=== PATIENT | male | born 1955 | race Caucasian/White ===

== ENCOUNTER 2018-10-06 12:49 | Inpatient (IN) ==
--- NOTE | 2018-10-06 12:54 | PROVIDER DOCUMENTATION ---
HPI-General Adult - General Stated Complaint: WOUND ON FOOT Time Seen by Provider: 10/06/18 12:51 Source: patient Allergies/Adverse Reactions: Patient Allergies Allergy/AdvReac Type Severity Reaction Status Date / Time No Known Allergies Allergy Verified 01/06/13 13:20 Home Medications: Home Medication List Medication Instructions Recorded Confirmed Last Taken Type Albuterol Sulfate [Proair Hfa] 2 puff IH PRN PRN 01/06/13 10/06/18 Unknown History Butalb/Acetaminophen/Caffeine 1 each PO BID PRN PRN 01/06/13 01/06/13 Unknown History [Yiirxr-Sliasnvw-Uoip 50-325-40] Gabapentin 600 mg PO TID 01/06/13 10/06/18 01/05/13 21:00 History Hydrocodone/Acetaminophen [Lortab 1 each PO TID 01/06/13 10/06/18 01/05/13 21:00 History 10-500 Tablet] LISINOpril [Prinivil] 20 mg PO DAILY 01/06/13 10/06/18 01/06/13 09:00 History Loratadine 10 mg PO QAM 01/06/13 01/06/13 01/05/13 09:00 History Lorazepam [Ativan] 0.5 mg PO TID PRN PRN 01/06/13 10/06/18 01/05/13 21:00 Hi story Lorazepam [Ativan] 1 mg PO QHS 01/06/13 10/06/18 01/05/13 21:00 History Metoprolol Succinate E.r. [Toprol 50 mg PO DAILY 01/06/13 01/06/13 01/06/13 09:00 History Xl] Sertraline HCl 100 mg PO DAILY 01/06/13 01/06/13 01/05/13 21:00 History Simvastatin [Zocor] 20 mg PO QHS 01/06/13 01/06/13 01/05/13 21:00 History Pantoprazole [Protonix] 40 mg PO DAILY@0700 #0 tablet 01/09/13 10/06/18 Unknown Rx Clindamycin [Cleocin] 150 mg PO Q6HR #28 cap 09/19/18 10/06/18 Unknown Rx Ibuprofen 800 mg PO TID PRN #30 tab 09/19/18 10/06/18 Unknown Rx - History of Present Illness -Gen Adult Nature of Presenting Problems: Pt. is 63 yom that presents with c/o wound to right foot. Pt. is currently being treated by the wound care center for the wound but the family reports it is just getting worse. He has vascular studies scheduled for 1400 and he signed into the ED at 1249. Location of Pain/Injury: reports: feet (Right). denies: none, head, face, mouth, neck, chest, upper extremity, hand(s), abdomen, back, pelvis, genitalia, lower extremity, upper body, lower body, generalized, other Pain Radiation: reports: no radiation. denies: arm(s), back, buttocks, chest, epigastric, feet, groin, jaw, flank (L), legs (lower), LLQ, LUQ, neck, periumbilical, flank (R), RLQ, RUQ, shoulder(s), scapula, scrotal, sternal notch, suprapubic, legs (upper), urethral, vaginal, other Quality of Pain: reports: aching. denies: burning, pressure, stabbing, tightness Severity: reports: moderate. denies: mild, severe Onset/Duration: reports: unsure, gradual Timing: reports: still present. denies: improving, intermittent, getting worse Context/Activities at Onset: reports: none Modifying Factors: improves with: nothing Associated Symptoms: reports: other (Right foot wound). denies: denies symptoms, anxiety, arm pain, back/neck pain, chest pain, constipation, cough, diaphoresis, diarrhea, dizziness, EENT symptoms, fatigue, fever/chills, genitourinary problems, headaches, heartburn, joint pain, loss of appetite, malaise, muscle aches, sinus congestion/drainage, nausea, rash, seizure, shortness of breath, sensory/motor loss, pain with inspiration, swelling/mass in abdomen, syncope, vomiting, weakness, trouble walking Similar Symptoms Previously?: Yes Recently seen or treated by another doctor?: Yes Review of Systems - Adult - REVIEW OF SYSTEMS - ADULT Constitutional: reports: no symptoms reported Eyes: reports: no symptoms reported Ears, Nose, Mouth & Throat: reports: no symptoms reported Cardiovascular: reports: no symptoms reported Respiratory: reports: no symptoms reported Gastrointestinal: reports: no symptoms reported Genitourinary: reports: no symptoms reported Musculoskeletal: reports: no symptoms reported Integumentary: reports: see HPI, skin sores/ulcer. denies: hair loss, itching, nail changes, skin thickening Neurological: reports: no symptoms reported Psychiatric: reports: no symptoms reported Past History - Adult - PAST MEDICAL HISTORY-ADULT Review of Records: reports: Old Records Reviewed, Nursing Assessment Review, Medications Reviewed, Social history reviewed & non-contributory. Major Childhood Illnesses: reports: denies history Cardiovascular: reports: denies history Respiratory: reports: denies history Gastrointestinal: reports: denies history Obstetrical/Gynecological: reports: denies history Genitourinary: reports: denies history Musculoskeletal: reports: denies history Neurological: reports: denies history Endocrine/Immune: reports: denies history Other Conditions: reports: denies history - IMMUNIZATION STATUS Childhood Immunizations: See Nurse Assessment Flu Vaccine: See Nurse Assessment - FAMILY HISTORY Family History: reviewed, not pertinent - SOCIAL HISTORY Smoking: denies Physical Exam-General - PHYSICAL EXAM-ADULT Initial Vital Signs Reviewed: Yes - CONSTITUTIONAL General Appearance: alert, mild distress, thin. negative: anxious, obtunded - EYES Eyes: PERRL/EOMI, pink conjunctivae - HEAD, EARS, NOSE, MOUTH & THROAT HENMT: normocephalic/atraumatic, moist mucous membranes - NECK Neck: non-tender, full range of motion, supple, normal inspection - RESPIRATORY Respiratory: lungs clear, normal breath sounds - CARDIOVASCULAR Cardiovascular: normal peripheral pulses, regular rate, rhythm, no edema - GASTROINTESTINAL (ABDOMEN) Abdominal Exam: normal bowel sounds, non tender, soft - LYMPHATIC Lymphatic: no adenopathy. negative: axilla node tender, cervical node tenderness - MUSCULOSKELETAL Back Exam: normal inspection, no CVA tenderness, no vertebral tenderness Extremity: erythema (The right foot is swollen and erythemic with on open wound to the medial foot just behind the great toe.), inflammation (The right foot is swollen and erythemic with on open wound to the medial foot just behind the great toe.), tenderness (The right foot is swollen and erythemic with on open wound to the medial foot just behind the great toe.). negative: normal gait, normal inspection, deformity, joint effusion Peripheral Pulses: radial (R): 2+, radial (L): 2+ - SKIN Integumentary: erythema (The right foot is swollen and erythemic with on open wound to the medial foot just behind the great toe.), swelling (The right foot is swollen and erythemic with on open wound to the medial foot just behind the great toe.), tenderness (The right foot is swollen and erythemic with on open wound to the medial foot just behind the great toe.), warm (The right foot is swollen and erythemic with on open wound to the medial foot just behind the great toe.). negative: jaundice, mottled, pallor - NEUROLOGIC Neurologic: grossly normal, no motor/sensory deficits - PSYCHIATRIC Psych/Mental Status: normal mood/affect, normal thought content, normal thought process, oriented x 3. negative: anxious, paranoid, tearful Progress - PLAN OF CARE/RESULTS Progress/Plan/Lab Results: Laboratory Tests 10/06/18 10/06/18 10/06/18 13:55 13:55 13:55 WBC 16.19 H RBC 4.77 Hgb 14.4 Hct 41.1 L MCV 86.2 MCH 30.2 MCHC 35.0 RDW Std Deviation 13.9 Plt Count 295 MPV 9.4 Immature Gran % (Auto) 0.2 Neut % (Auto) 80.0 H Lymph % (Auto) 10.3 L Burke % (Auto) 9.0 Eos % (Auto) 0.4 Baso % (Auto) 0.1 Immature Gran # (Auto) 0.03 Neut # (Auto) 12.96 H Lymph # (Auto) 1.66 Burke # (Auto) 1.45 H Eos # (Auto) 0.07 Baso # (Auto) 0.02 Sodium 135 L Potassium 3.8 Chloride 94 L Carbon Dioxide 25 Anion Gap 16 BUN 13 Creatinine 0.7 Estimated GFR/1.73 m2 > 60 BUN/Creatinine Ratio 19 Glucose 132 H Calculated Osmolality 272 Calcium 9.0 Total Bilirubin 0.70 AST 17 ALT 8 L Alkaline Phosphatase 114 Creatine Kinase 62 Total Protein 8.3 Albumin 3.9 Globulin 4.0 Albumin/Globulin Ratio 1.0 Plasma Lactate 1.6 Discussed results and plan of care with patient. Patient agrees with plan and verbalizes understanding. Result Diagrams: 10/06/18 13:55 10/06/18 13:55 - CONSULTS/PCP/HOSPITALIST Notification #1 *Consult/PCP/Hospitalist*: Dr. [place] Time Discussed: 15:33 Reason/Comments: Admission Consult Disposition: Will see in ED, Admit Departure - Departure Date of Disposition Decision: 10/06/18 Time of Disposition Decision: 15:34 DIAGNOSIS: Foot ulcer, right Qualifiers: Non-pressure ulcer stage: unspecified non-pressure ulcer stage Qualified Code(s ): L97.519 - Non-pressure chronic ulcer of other part of right foot with unspecified severity Cellulitis Qualifiers: Site of cellulitis: extremity Site of cellulitis of extremity: lower extremity Laterality: right Qualified Code(s): L03.115 - Cellulitis of right lower limb Disposition: ADMITTED INPATIENT 09 Certified Medical Emergency: Emergent Condition: Stable Referrals and Follow-Ups: None,PCP [Primary Care Provider] - - Critical Care Note This patient required my direct & personal management of CC.: No Attestation - Physician/ JUAN Attestation Patient care was provided by Advanced Practice Provider:: Yes Advanced Practice Provider:: Colton Lynn Advanced Practice Provider documentation review:: The Mid-level provider documentation, treatment plan and medical decision making was reviewed by the physician who agrees with all treatment and medical decision making by the MLP. The physician spent face to face time with patient:: No Advanced Practice Provider documentation review:: Supervising physician onsite and consulted in the evaluation and care of this patient. The physician did not have a face to face encounter with the patient.
[2018-10-06 14:09] LABS: EOS# 0.07 X1000 (0.0-0.7); EOS% 0.4 % (0.0-10.0); HEMOGLOBIN 14.4 g/dL (14.0-18.0); IMM GRAN# 0.03 X1000 (0.0-0.04); IMM GRAN% 0.2 % (0.0-0.5); RDW 13.9 % (11.5-14.5)
[2018-10-06 14:19] LABS: BASO# 0.02 X1000 (0.0-0.2); BASO% 0.1 % (0.0-0.8); HEMATOCRIT 41.1 % (42.0-52.0); LYMPH# 1.66 X1000 (1.2-3.4); LYMPH% 10.3 % (20.5-51.1); MCH 30.2 PG (27-31); MCV 86.2 FL (81-99); MONO# 1.45 X1000 (0.11-0.59); MPV 9.4 FL (7.4-10.4); NEUT# 12.96 X1000 (1.4-6.5); PLT 295 X1000 (130-400); RBC 4.77 XMIL (4.7-6.1); WBC 16.19 X1000 (4.8-10.8)
[2018-10-06 14:40] LABS: AGAP 16; ALBUMIN 3.9 g/dL (3.5-5.0); ALKALINE PHOSPHATASE 114 U/L (32-122); BUN 13 mg/dL (8-22); CHLORIDE 94 mmol/L (98-107); CK PROFILE 62 U/L (24-204); COSMO 272; CREATININE 0.7 mg/dL (0.7-1.2); ESTIMATED GFR > 60; GLUCOSE 132 mg/dL (70-104); GOT 17 U/L (10-34); GPT 8 U/L (10-44); POTASSIUM 3.8 mmol/L (3.5-5.1); SODIUM 135 mmol/L (136-145); TCO2 25 mmol/L (25-35); TOTAL PROTEIN 8.3 g/dL (6.3-8.3)
[2018-10-06] MEDS ORDERED: VANCOMYCIN 1 GM/NS 1 GM/250 ML IVPB IV ONE ×2 (14:41→23:00)
--- NOTE | 2018-10-06 16:17 | Diag Imaging Result Doc PS360 ---
EXAM: CHEST-PORTABLE HISTORY: admit TECHNIQUE: Single view of the chest was performed portably. COMPARISON: 01/11/2013 FINDINGS: The cardiomediastinal silhouette is within normal limits. The pulmonary vasculature is not congested. No infiltrate, effusion, or pneumothorax is appreciated. There is stable postsurgical/posttraumatic changes right distal clavicle. IMPRESSION: No acute cardiopulmonary abnormality is identified. Electronically signed by Romana Valladares 10/06/2018 4:15 PM
[2018-10-06 16:32] LABS: BILIRUBIN URINE 1+ (NEGATIVE); BLOOD URINE NEGATIVE (NEGATIVE); CLARITY CLEAR (CLEAR); COLOR YELLOW; KETONE URINE 1+(Small) mg/dL (NEGATIVE); LEUKOCYTES URINE 1+ (NEGATIVE); NITRITE URINE NEGATIVE (NEGATIVE); PH URINE 6.5; PROTEIN URINE 2+(100 mg/dL) mg/dL (NEGATIVE); SP GRAVITY URINE 1.015; UROBILINOGEN URINE 8 mg/dL
[2018-10-06 16:37] LABS: URINE BACTERIA 1+ /HFP; URINE CAST NONE SEEN /LPF; URINE CRYSTAL NONE SEEN /HPF; URINE EPITHELIAL CELLS <10 /HPF (<10); URINE SOURCE CATH; URINE YEAST NONE SEEN /HPF
--- NOTE | 2018-10-06 16:43 | EKG Report ---
Test Performed on : 10/06/2018 4:23:44 PM Test Reason : admit Blood Pressure : / mmHG Vent. Rate : 099 BPM Atrial Rate : 099 BPM P-R Int : 174 ms QRS Dur : 094 ms QT Int : 356 ms P-R-T Axes : 018 020 028 degrees QTc Int : 456 ms Normal sinus rhythm. Normal ECG When compared with ECG of 06-JAN-2013 12:49, Nonspecific T wave abnormality no longer evident in Lateral leads Unconfirmed Result
--- NOTE | 2018-10-06 17:56 | ED EKG INTERP ---
This chart was entered by Nancy Cheng Scribe, acting as scribe for Alfredo Banks MD. EKG Interpretation - EKG Time of EKG reading by physician:: 16:23 EKG Read and Signed by:: Alfredo Banks EKG Interpretation (*Must complete 3 of following elements*): Normal Rate: 99 Rhythm: normal sinus QRS: normal ST Wave: normal Attestation - Physician/ JUAN Attestation Patient care was provided by Advanced Practice Provider:: No The physician spent face to face time with patient:: Yes Advanced Practice Provider documentation review:: Supervising physician onsite and consulted in the evaluation and care of this patient. The physician did have a face to face encounter with the patient. This chart was documented by the indicated scribe, (Nancy Cheng Scribe) and accurately reflects the services I performed and decisions made by me, Alfredo Banks MD, as attested by the provider's signature.
--- NOTE | 2018-10-06 19:06 | HISTORY AND PHYSICAL ---
PRIMARY CARE PROVIDER: None. VASCULAR SURGEON: Dr. Alvarado Chase. CHIEF COMPLAINT: Right wound infection. HISTORY OF PRESENT ILLNESS: Mr. Fischer is a 63-year-old gentleman who has a history of 2 prior CVAs that have affected his speech as well as his right lower extremities, peripheral vascular disease, chronic liver disease secondary to alcoholism, anemia, hypertension and chronic pain. He presented to the ED with complaint of a wound to his right foot. He is currently being treat treated at the [facility]. The family reported he was supposed to have vascular studies done at 2 o'clock today; however, he signed in to the ED at 12:49. He was found to have an elevated white count. He was initiated on vancomycin and Zosyn. Wound cultures were taken and we are currently awaiting his vascular studies. We will consult Vascular in the a.m. There was no nobody at the bedside at the time of admission. I believe the sister had stepped out of the room, unable to locate at the time of the exam, and it was hard to understand the patient secondary to speech. He was able to point and shake his head yes and no. Will bring him to the medical telemetry floor and continue with IV antibiotic. PAST MEDICAL HISTORY: 1. Two prior CVAs that have affected his speech in the right side of his body. 2. Anemia. 3. Hypertension. 4. Chronic pain. 5. Chronic liver disease secondary to alcoholism. PAST SURGICAL HISTORY: The only thing of note is an EGD. SOCIAL HISTORY: Patient used to be a chronic alcoholic, as well as smoker. Is now status post two CVAs that affected his speech in the right side of the body. He lives with his sister. FAMILY HISTORY: Unknown. ALLERGIES: No known drug allergies. HOME MEDICATIONS: Have not been verified. REVIEW OF SYSTEMS: Hard to obtain secondary to patient's condition and no family at bedside. PHYSICAL EXAMINATION: VITAL SIGNS: Temperature 99, heart rate 90, respirations 18, blood pressure 128/74. O2 sat is 95% on room air. GENERAL: Mr. Fischer is a 63-year-old male who is sitting up in the stretcher in no acute distress. HEENT: Atraumatic, normocephalic. PERRL. NECK: Supple. Trachea midline. CARDIOVASCULAR: S1, S2 appreciated. No murmurs, gallops or rubs noted. RESPIRATORY: Lung sounds clear bilaterally. GASTROINTESTINAL: Soft, nontender, nondistended. Positive bowel sounds in 4 quadrants. EXTREMITY: Lower extremity both pedal pulses palpable. His right foot is currently dressed and wrapped. Could note some redness underneath. Did not appreciate any oozing. NEUROLOGIC: Patient does have a affected speech as well as bilateral right-sided weakness noted. DIAGNOSTIC DATA: Vascular studies are currently pending. Chest x-ray, no acute cardiopulmonary abnormality. LABORATORY DATA: White count 16, hemoglobin and hematocrit 14 and 41, platelet count is 295,000. Sodium 135, potassium 3.8, BUN 13, creatinine 0.7 blood glucose was 132. Plasma lactate 1.6, currently pending wound cultures, blood cultures. ASSESSMENT AND PLAN: 1. Right wound infection, believed to be secondary to peripheral vascular disease. We are currently awaiting peripheral vascular studies. Will go ahead and initiate on gram-negative and gram-positive coverage. Will await cultures. Will consult General Surgery in the a.m. He did have an elevated white count of 16. 2. Two prior CVAs that has affected his speech in the right side of his body. 3. Hypertension. 4. Chronic pain. 5. Alcohol abuse in the past, unknown at this time. The patient still is abusing alcohol. There was no family at bedside. 6. Further recommendation to follow physician evaluation, laboratory and diagnostic data. Dictated by BALWINDER De Los Santos for Yaakov Solorio MD cc: MD Fernando Chamberlain MD
--- NOTE | 2018-10-06 19:33 | HISTORY AND PHYSICAL ---
HISTORY AND PHYSICAL ADDENDUM: Patient seen and examined by myself. Full note dictated and discussed with nurse practitioner. Patient presented to the hospital with left foot pain. He was actually planned to have an arterial Doppler earlier today. Unfortunately, he was told approximately 3 months ago, per his sister that he could no longer have any surgical procedures due to his heart. He has had increased swelling and pain on his foot. He currently has an ulcerated lesion that is being treated by Wound Care. We will admit to the hospital. IV antibiotics, pain control and will follow. cc: Yaakov Solorio MD
[2018-10-06] MEDS ORDERED: ATIVAN PO SCH (21:35)
[2018-10-06] MEDS ORDERED: ATIVAN PO PRN (21:35)
[2018-10-06] MEDS ORDERED: NEURONTIN PO SCH (21:35)
[2018-10-06] MEDS ORDERED: ZOFRAN IV PRN (21:35)
[2018-10-06] MEDS ORDERED: VANCOMYCIN IV PER PHARMACY MISC SCH (21:35)
[2018-10-06] MEDS: ZOSYN 3.375 GM in NS 50 ML IV SCH (23:17)
[2018-10-06] MEDS: NEURONTIN PO SCH (23:17)
[2018-10-06] MEDS: PRILOSEC PO SCH (23:18)
[2018-10-06] MEDS: CYMBALTA PO SCH (23:18)
[2018-10-06] MEDS: LIPITOR PO SCH (23:18)
[2018-10-06] MEDS: NORCO-10 PO PRN (23:19)
[2018-10-06] MEDS: DUONEB (A & A) INH PRN (23:43)
[2018-10-07] MEDS: ZOSYN 3.375 GM in NS 50 ML IV SCH ×4 (04:10→21:12)
[2018-10-07 07:10] LABS: BASO# 0.02 X1000 (0.0-0.2); BASO% 0.1 % (0.0-0.8); EOS# 0.08 X1000 (0.0-0.7); EOS% 0.6 % (0.0-10.0); HEMATOCRIT 36.2 % (42.0-52.0); HEMOGLOBIN 12.6 g/dL (14.0-18.0); IMM GRAN# 0.03 X1000 (0.0-0.04); IMM GRAN% 0.2 % (0.0-0.5); LYMPH# 1.21 X1000 (1.2-3.4); LYMPH% 8.7 % (20.5-51.1); MCH 29.7 PG (27-31); MCHC 34.8 g/dL (33-37); MCV 85.4 FL (81-99); MONO# 1.11 X1000 (0.11-0.59); MPV 9.9 FL (7.4-10.4); NEUT# 11.44 X1000 (1.4-6.5); NEUT% 82.4 % (42.2-75.2); PLT 257 X1000 (130-400); RBC 4.24 XMIL (4.7-6.1); RDW 13.5 % (11.5-14.5); WBC 13.89 X1000 (4.8-10.8)
[2018-10-07 07:31] LABS: AGAP 12; ALBUMIN 3.3 g/dL (3.5-5.0); ALKALINE PHOSPHATASE 116 U/L (32-122); BUN 7 mg/dL (8-22); CALCIUM 8.4 mg/dL (8.8-10.2); CHLORIDE 97 mmol/L (98-107); COSMO 267; CREATININE 0.5 mg/dL (0.7-1.2); ESTIMATED GFR > 60; GLUCOSE 113 mg/dL (70-104); GOT 16 U/L (10-34); GPT 7 U/L (10-44); POTASSIUM 3.2 mmol/L (3.5-5.1); SODIUM 134 mmol/L (136-145); TCO2 25 mmol/L (25-35)
[2018-10-07] MEDS: DUONEB (A & A) INH PRN ×4 (07:33→19:39)
[2018-10-07] MEDS: VANCOMYCIN 1,350 MG in NS 250 ML IV SCH (08:20)
[2018-10-07] MEDS: NORVASC PO SCH (08:21)
[2018-10-07] MEDS: NEURONTIN PO SCH ×3 (08:21→21:11)
[2018-10-07] MEDS: XARELTO PO SCH (08:21)
[2018-10-07] MEDS ORDERED: PRINIVIL PO SCH (09:00)
[2018-10-07] MEDS: NORCO-10 PO PRN ×3 (09:44→18:34)
[2018-10-07 09:46] LABS: INR 1.06; PROTIME 14.3 Seconds (11.0-16.0)
[2018-10-07 09:47] LABS: PTT 44.4 Seconds (22.3-41.8)
--- NOTE | 2018-10-07 15:20 | VASCULAR LAB ---
PROCEDURE NAME: Arterial Bilateral Legs - 10/06/2018 LOWER EXTREMITY ARTERIAL STUDY: REQUESTING PHYSICIAN: Dr. Álvarez. CHEMICAL MACHINE TENDER: Marily. INDICATIONS: Leg pain. SUMMARY: Segmental pressures are as follows: Right brachial 156, left 139; right proximal thigh 91, left 77; right distal thigh 112, left 61; right popliteal 62, left 67; right dorsalis pedis 56, left 45; right posterior tibial not measured, left not measured; right great toe 8, left 8; right MEGAN 0.36, left 0.29; right tibia 0.05, left 0.05. Waveform analysis: Very minimal waveform is noted, even in the proximal leg suggesting central vascular disease. INTERPRETATION: Likely aortoiliac vascular disease with poor perfusion noted to the legs, not sufficient for wound healing. The patient would likely benefit from CT angiography. cc: Tomi Ventura MD
[2018-10-07] MEDS: SANTYL OINT TOP SCH (18:24)
--- NOTE | 2018-10-07 19:18 | PROGRESS NOTE ---
DATE: 10/07/2018 SUBJECTIVE: The patient notes that his foot is hurting. Otherwise no new complaints. PHYSICAL EXAMINATION: Vital Signs: Reviewed. Temperature 98.6 degrees, pulse 87, respiratory rate 18, BP 125/71. General: The patient is pleasant. He is in no distress. HEENT: Normocephalic. Neck: Supple. Cardiovascular: Regular rate. Chest: Clear. Abdomen: Soft. Extremities: Moves all extremities. ASSESSMENT: 1. Persistent wound infection on his right lower extremity. 2. Peripheral vascular disease, severe. 3. Abnormal wound culture. 4. Pain secondary to his wound on his right foot. 5. Two previous cerebrovascular accidents that have left him unable to speak. 6. Chronic pain. 7. Hypertension. PLAN: We will continue to follow the patient for alcohol abuse and withdrawal. We will continue antibiotics for his foot until the culture and sensitivities delineates which antibiotic. Surgery is aware. Wound Therapy is also aware and is seeing the patient. The patient has significant vascular disease that would require surgery, but unfortunately, he is a very poor surgical candidate. cc: Yaakov Solorio MD
--- NOTE | 2018-10-07 21:07 | GENERAL SURGERY CONSULTATION ---
DATE: 10/07/2018 HISTORY OF PRESENT ILLNESS: This is a 63-year-old gentleman who was seen by me 4 days ago in [facility]. He has an extensive peripheral vascular history and as well as CVA history. He is aphasic with hemiparesis. He has a wound on his right medial 1st metatarsal and increasing pain prompting readmission. Admitted for further evaluation. He was scheduled for noninvasive arterial studies today actually. MEDICAL HISTORY: Multiple CVAs, anemia, hypertension, chronic pain, liver disease secondary to alcoholism. SURGICAL HISTORY: I believe he has had vascular surgery in the past although details are unclear. SOCIAL HISTORY: Chronic alcoholism, ongoing smoking. FAMILY HISTORY: Is unobtainable. REVIEW OF SYSTEMS: Ten point negative. PHYSICAL EXAMINATION: He was afebrile with pulse in the 80s, blood pressure was 109/79, O2 saturation 100%.General: He is a chronically ill-appearing gentleman. HEENT: No scleral icterus. He does have some chronic facial droop. Cardiovascular: Normal rate. Pulmonary: No increased work of breathing. Abdomen: Soft. Integument: Warm, dry. Psychiatric: He is alert. Neurologic: He has hemiparesis of his right side. He is aphasic with some chronic facial droop. Peripheral vascular: Chronic ischemic changes noted. Musculoskeletal: Has a subcentimeter ulcer on the first metatarsal medially with no exposed bone, no necrosis, no obvious purulence. No obvious cellulitis. LAB: White count was 16 on admission, hematocrit 41, platelets 295,000. Creatinine is 0.7, glucose in the 130s. Troponins are normal. Urinalysis shows white blood cells. He has had extremity arterial study that shows significantly depressed MEGAN 0.36 on the right, the left 0.29 was blunting of the waveforms throughout consistent with aortoiliac disease. ASSESSMENT AND PLAN: A 63-year-old gentleman with ischemic ulcer right medial 1st foot. He is very chronically ill with cerebrovascular accident, he is a known peripheral vascular disease. Apparently, he has been advised not had any operations in the past. He does need angiography with runoff to further evaluate. Very poor prognosis healing this wound and based off his noninvasive studies he would require an above-knee amputation and would be marginal to heal this. Doubtful there is any vascular operation. He is on antibiotics. Will continue local wound care follow along. cc: Fernando Chase MD
[2018-10-07] MEDS: TYLENOL PO PRN (21:10)
[2018-10-07] MEDS: CYMBALTA PO SCH (21:11)
[2018-10-07] MEDS: PRILOSEC PO SCH (21:12)
[2018-10-07] MEDS: LIPITOR PO SCH (21:12)
[2018-10-07] MEDS: MORPHINE IV PRN (22:21)
[2018-10-08] MEDS: NORCO-10 PO PRN ×4 (00:58→21:09)
[2018-10-08] MEDS: VANCOMYCIN 1,350 MG in NS 250 ML IV SCH ×2 (02:18→21:08)
[2018-10-08] MEDS: ZOSYN 3.375 GM in NS 50 ML IV SCH ×4 (04:04→23:05)
[2018-10-08 07:09] LABS: BASO# 0.02 X1000 (0.0-0.2); BASO% 0.2 % (0.0-0.8); EOS# 0.06 X1000 (0.0-0.7); EOS% 0.5 % (0.0-10.0); HEMATOCRIT 33.9 % (42.0-52.0); HEMOGLOBIN 11.9 g/dL (14.0-18.0); IMM GRAN# 0.02 X1000 (0.0-0.04); IMM GRAN% 0.2 % (0.0-0.5); LYMPH# 1.27 X1000 (1.2-3.4); MCHC 35.1 g/dL (33-37); MCV 85.4 FL (81-99); MONO# 1.16 X1000 (0.11-0.59); MONO% 9.1 % (1.7-9.3); MPV 9.4 FL (7.4-10.4); NEUT# 10.16 X1000 (1.4-6.5); PLT 292 X1000 (130-400); RBC 3.97 XMIL (4.7-6.1); RDW 13.5 % (11.5-14.5); WBC 12.69 X1000 (4.8-10.8)
[2018-10-08] MEDS: DUONEB (A & A) INH PRN ×2 (07:48→16:15)
[2018-10-08 08:12] LABS: AGAP 14; BUN 7 mg/dL (8-22); CALCIUM 8.4 mg/dL (8.8-10.2); CHLORIDE 99 mmol/L (98-107); COSMO 272; CREATININE 0.8 mg/dL (0.7-1.2); ESTIMATED GFR > 60; GLUCOSE 108 mg/dL (70-104); POTASSIUM 3.1 mmol/L (3.5-5.1); SODIUM 137 mmol/L (136-145); TCO2 25 mmol/L (25-35)
[2018-10-08] MEDS: NEURONTIN PO SCH ×3 (09:00→21:09)
[2018-10-08] MEDS: NORVASC PO SCH (09:01)
[2018-10-08] MEDS: XARELTO PO SCH (09:01)
[2018-10-08] MEDS: SANTYL OINT TOP SCH (09:01)
[2018-10-08] MEDS: MORPHINE IV PRN ×3 (10:38→18:33)
--- NOTE | 2018-10-08 14:06 | PROGRESS NOTE ---
DATE: 10/08/2018 SUBJECTIVE: The patient notes that his foot still hurts. He has been afebrile. PHYSICAL EXAMINATION: Vital Signs: Reviewed. Temperature 99.3 degrees, pulse 90, respiratory 18, BP 126/66. General: Patient is awake, alert. He is in no distress. HEENT: Normocephalic. Neck: Supple. Cardiovascular: Regular rate. Chest: Clear, nonlabored. Abdomen: Soft, nondistended. Extremities: Moves all extremities. His ulcerated lesion is bandaged, clean, dry and intact. ASSESSMENT: 1. Ischemic ulcer, right medial foot, currently growing methicillin-resistant Staphylococcus aureus. 2. Severe peripheral vascular disease. 3. Two previous cerebrovascular accidents. PLAN: We will continue patient in the hospital. He currently is on vancomycin. We will continue that given his MRSA in his wound. We will continue wound therapy. Agree with surgery input that patient may not improve without surgery, and he certainly may not survive surgery. cc: Yaakov Solorio MD
[2018-10-08] MEDS ORDERED: KLOR-CON PO ONE (18:01)
[2018-10-08] MEDS: LIPITOR PO SCH (21:08)
[2018-10-08] MEDS: CYMBALTA PO SCH (21:09)
[2018-10-08] MEDS: PRILOSEC PO SCH (21:09)
[2018-10-08] MEDS: TYLENOL PO PRN (22:48)
[2018-10-09] MEDS: ZOSYN 3.375 GM in NS 50 ML IV SCH ×4 (04:05→22:47)
[2018-10-09] MEDS: MORPHINE IV PRN ×2 (04:32→20:12)
[2018-10-09 05:55] LABS: HEMOGLOBIN 12.7 g/dL (14.0-18.0); MCH 29.1 PG (27-31); MCHC 34.3 g/dL (33-37); MCV 84.9 FL (81-99); MPV 9.8 FL (7.4-10.4); RBC 4.36 XMIL (4.7-6.1); RDW 13.7 % (11.5-14.5); WBC 13.32 X1000 (4.8-10.8)
[2018-10-09 06:28] LABS: AGAP 11; ALBUMIN 2.8 g/dL (3.5-5.0); ALKALINE PHOSPHATASE 127 U/L (32-122); BUN 5 mg/dL (8-22); CALCIUM 8.5 mg/dL (8.8-10.2); CHLORIDE 101 mmol/L (98-107); COSMO 272; CREATININE 0.8 mg/dL (0.7-1.2); ESTIMATED GFR > 60; GLUCOSE 113 mg/dL (70-104); GOT 27 U/L (10-34); GPT 11 U/L (10-44); POTASSIUM 3.4 mmol/L (3.5-5.1); SODIUM 137 mmol/L (136-145); TCO2 25 mmol/L (25-35)
[2018-10-09] MEDS: NORCO-10 PO PRN ×2 (09:34→14:39)
[2018-10-09] MEDS: NEURONTIN PO SCH ×3 (09:34→20:57)
[2018-10-09] MEDS: XARELTO PO SCH (09:35)
[2018-10-09] MEDS: NORVASC PO SCH (09:35)
[2018-10-09] MEDS: SANTYL OINT TOP SCH (09:35)
--- NOTE | 2018-10-09 13:02 | Diag Imaging Result Doc PS360 ---
CT ANGIOGRAM AORTA W/RUNOFF - 10/09/2018 INDICATION: pvd TECHNIQUE: Axial CT images were obtained after administering intravenous contrast. Three-dimensional angiographic images were generated. COMPARISON: 01/17/2018 FINDINGS: The lung bases are clear and the heart size is normal. Abdominal organs are normal. There is constipation with moderate rectal stool impaction. There is a 6.5 cm rectal stool ball. Urinary bladder and prostate are normal. There is moderate diverticulosis of the colon. There is heavy vascular disease of the abdominal aorta. No aneurysm. There is heavy disease of the celiac, superior and inferior mesenteric, and renal arteries. There is mild stenosis of the superior mesenteric artery, about 25%. There are two right and one left renal artery. There is severe stenosis of the proximal main right renal artery, by about 75% narrowing. There is also focal moderate stenosis of the left renal artery by about 33%. On the right side, there is critical stenosis of the origin of the common iliac artery, narrowed by over 90%. There is severe stenosis throughout the external iliac artery narrowed by about 60%. There is critical stenosis of the internal iliac artery which occludes. There is complete occlusion of the common femoral artery with significant dense plaque buildup. This reconstitutes probably from the gluteal-deep femoral branches. The deep femoral artery demonstrates multifocal critical stenosis over 90% narrowing. The superficial femoral artery also demonstrates multifocal critical stenosis of over 90% narrowing. The popliteal artery demonstrates similar multifocal critical stenosis of over 80% narrowing. The anterior tibial artery is heavily diseased with multifocal severe stenosis of 60% narrowing. The TP trunk and its branch vessels are occluded. However, there is some reconstitution and a trickle flow in all three vessels at the ankle. On the left side, there is complete occlusion of the common iliac artery with densely calcified plaque. There is some flow in the internal and external iliac arteries but there is multifocal severe stenosis. There is complete occlusion of the left common femoral artery. There is some minimal reconstitution of the deep femoral artery. The superficial femoral artery remains completely occluded. Small intramuscular branch vessels reconstitute the popliteal artery at the level of the patella. The popliteal artery itself is also heavily diseased with severe stenosis distally, about 80% narrowing. The anterior and posterior tibial arteries are heavily diseased with multifocal severe stenosis of about 50%. Somehow, there is a three-vessel runoff to the left foot. IMPRESSION: 1. Severe global vascular disease. 2. Constipation with rectal stool impaction. This exam was performed using automated exposure control, adjustment of mA or kV according to patient size, and/or use of iterative reconstruction technique Electronically signed by Anson Leon 10/09/2018 1:00 PM
[2018-10-09] MEDS: VANCOMYCIN 1,350 MG in NS 250 ML IV SCH (14:31)
--- NOTE | 2018-10-09 14:39 | PROGRESS NOTE ---
DATE: 10/09/2018 SUBJECTIVE: Patient acknowledges that his foot still hurts. Shakes no to any other complaints currently. OBJECTIVE: Vital Signs: On physical, temperature 98, pulse 84, respiratory rate 18, BP 109/60 to 140 systolic. General: Patient is in no respiratory distress. HEENT: Normocephalic. Neck: Supple. Cardiovascular: Regular rate. Chest: Clear. Abdomen: Soft, nondistended. Extremities: Moves all extremities. Right foot bandage is clean, dry and intact. ASSESSMENT: 1. Methicillin-resistant Staphylococcus aureus bacteremia. 2. Methicillin-resistant Staphylococcus aureus wound infection, right foot. 3. Ischemic ulcer, right foot. 4. Severe peripheral vascular disease. 5. History of two cerebrovascular accidents. 6. Hypertension. 7. Chronic pain. PLAN: We will continue patient in the hospital. Continue vancomycin for his MRSA and Zosyn for his gram-negative mathew that growing in his wound. We will adjust after sensitivities. Unfortunately, the patient may require surgery to improve, but he is an extremely poor surgical candidate and would likely not survive. cc: Yaakov Solorio MD
[2018-10-09] MEDS: CYMBALTA PO SCH (20:57)
[2018-10-09] MEDS: LIPITOR PO SCH (20:57)
[2018-10-09] MEDS: PRILOSEC PO SCH (20:57)
[2018-10-10] MEDS: TYLENOL PO PRN (00:27)
[2018-10-10] MEDS: ZOSYN 3.375 GM in NS 50 ML IV SCH ×4 (04:18→22:07)
[2018-10-10] MEDS: MORPHINE IV PRN ×3 (06:28→17:37)
[2018-10-10] MEDS: VANCOMYCIN 1,350 MG in NS 250 ML IV SCH (09:00)
[2018-10-10] MEDS: NORCO-10 PO PRN (09:00)
[2018-10-10] MEDS: NEURONTIN PO SCH ×3 (09:00→22:07)
[2018-10-10] MEDS: XARELTO PO SCH (09:00)
[2018-10-10] MEDS: SANTYL OINT TOP SCH (09:01)
[2018-10-10] MEDS: NORVASC PO SCH (09:01)
[2018-10-10] MEDS: LACTULOSE PO SCH ×2 (10:18→22:08)
[2018-10-10] MEDS: DUONEB (A & A) INH PRN (11:47)
[2018-10-10] MEDS: LIPITOR PO SCH (22:07)
[2018-10-10] MEDS: CYMBALTA PO SCH (22:08)
[2018-10-10] MEDS: PRILOSEC PO SCH (22:08)
[2018-10-11] MEDS: NORCO-10 PO PRN ×4 (01:37→21:52)
[2018-10-11] MEDS: VANCOMYCIN 1,350 MG in NS 250 ML IV SCH ×2 (01:37→21:53)
[2018-10-11] MEDS: ZOSYN 3.375 GM in NS 50 ML IV SCH ×5 (04:45→22:05)
[2018-10-11] MEDS: LACTULOSE PO SCH ×2 (08:43→22:05)
[2018-10-11] MEDS: NEURONTIN PO SCH ×3 (08:43→21:52)
[2018-10-11] MEDS: XARELTO PO SCH (08:43)
[2018-10-11] MEDS: NORVASC PO SCH (08:43)
[2018-10-11] MEDS: SANTYL OINT TOP SCH (08:43)
[2018-10-11] MEDS: MORPHINE IV PRN ×2 (08:45→17:44)
--- NOTE | 2018-10-11 14:02 | PROGRESS NOTE ---
DATE: 10/11/2018 SUBJECTIVE: Patient states foot still hurts but otherwise denies any new complaints. PHYSICAL: Temperature 99.2, pulse 89, respiratory 18, BP 140/73.General: Patient is awake, alert. He is in no distress. HEENT: Normocephalic. Neck: Supple. Cardiovascular: Regular rate. No murmurs. Chest: Clear, nonlabored. Abdomen: Soft. Extremities: Moves all extremities. Neuro: No changes. ASSESSMENT: 1. Ischemic ulcerated lesion right foot clean, dry and intact bandage. Appears to be slowly healing. 2. Methicillin-resistant Staph aureus bacteremia. 3. Methicillin-resistant Staphylococcus aureus foot ulceration. 4. Two previous cerebrovascular accidents causing dysarthric speech. 5. Hypertension. 6. Chronic pain. 7. Alcohol abuse, stable. No current symptoms of withdrawal. 8. Severe peripheral vascular disease. 9. Constipation. We will add lactulose. 10. Enterobacter cellulitis of his foot. PLAN: We will continue Zosyn, continue vancomycin. Add lactulose. Continue to follow. Continue pain control. cc: Yaakov Solorio MD
[2018-10-11] MEDS: CALMOSEPTINE OINTMENT TOP PRN (17:10)
[2018-10-11] MEDS: LIPITOR PO SCH (21:52)
[2018-10-11] MEDS: PRILOSEC PO SCH (21:52)
[2018-10-11] MEDS: CYMBALTA PO SCH (21:52)
[2018-10-12] MEDS: MORPHINE IV PRN ×2 (04:36→16:24)
[2018-10-12] MEDS: ZOSYN 3.375 GM in NS 50 ML IV SCH ×4 (04:36→22:08)
[2018-10-12 06:11] LABS: HEMATOCRIT 37.5 % (42.0-52.0); MCH 29.3 PG (27-31); MCHC 34.7 g/dL (33-37); MCV 84.5 FL (81-99); MPV 9.2 FL (7.4-10.4); RBC 4.44 XMIL (4.7-6.1); RDW 13.9 % (11.5-14.5); WBC 9.37 X1000 (4.8-10.8)
[2018-10-12 06:36] LABS: AGAP 13; ALBUMIN 2.9 g/dL (3.5-5.0); ALKALINE PHOSPHATASE 89 U/L (32-122); BUN 10 mg/dL (8-22); CALCIUM 8.8 mg/dL (8.8-10.2); CHLORIDE 102 mmol/L (98-107); COSMO 283; CREATININE 1.2 mg/dL (0.7-1.2); ESTIMATED GFR > 60; GLUCOSE 110 mg/dL (70-104); GOT 25 U/L (10-34); GPT 15 U/L (10-44); MAGNESIUM 2.2 mg/dL (1.5-2.7); POTASSIUM 3.1 mmol/L (3.5-5.1); SODIUM 142 mmol/L (136-145); TCO2 27 mmol/L (25-35); TOTAL PROTEIN 7.6 g/dL (6.3-8.3)
[2018-10-12] MEDS ORDERED: KLOR-CON PO ONE (08:03)
[2018-10-12] MEDS: DUONEB (A & A) INH PRN (08:07)
[2018-10-12] MEDS: NEURONTIN PO SCH ×3 (09:33→21:26)
[2018-10-12] MEDS: XARELTO PO SCH (09:34)
[2018-10-12] MEDS: NORVASC PO SCH (09:34)
[2018-10-12] MEDS: NORCO-10 PO PRN ×3 (09:34→21:28)
[2018-10-12] MEDS: LACTULOSE PO SCH ×2 (09:49→21:32)
[2018-10-12] MEDS: SANTYL OINT TOP SCH (12:33)
[2018-10-12] MEDS: CALMOSEPTINE OINTMENT TOP PRN (17:13)
--- NOTE | 2018-10-12 21:13 | PROGRESS NOTE ---
DATE: 10/12/2018 SUBJECTIVE: Patient has no new complaints, still notes his foot hurts but also notes that everything hurts. PHYSICAL: Temperature 99.2 degrees, pulse 89, respiratory 18, BP 140/73.General: Patient is awake, alert, he is sitting in the bed, he is watching television. No respiratory distress. HEENT: Normocephalic. Neck: Supple. CV: Regular rate. No murmurs. Chest: Clear nonlabored. Abdomen: Soft, nondistended. Extremities: Moves all extremities. Skin: He has an ulcerated lesion with a bandage clean, dry and intact on his right foot. ASSESSMENT: 1. Ischemic ulcer right foot. 2. Methicillin-resistant Staph aureus cellulitis. 3. Methicillin-resistant Staph aureus bacteremia. 4. Constipation. 5. History of cerebrovascular accident with expressive aphasia. 6. Hypertension. 7. Chronic pain. PLAN: We will continue patient in the hospital, continue vancomycin and Zosyn for his Enterobacter in his wound. Will need to ensure that his repeat blood cultures are negative. cc: Yaakov Solorio MD
[2018-10-12] MEDS: LIPITOR PO SCH (21:25)
[2018-10-12] MEDS: CYMBALTA PO SCH (21:25)
[2018-10-12] MEDS: PRILOSEC PO SCH (21:26)
[2018-10-13] MEDS: NORCO-10 PO PRN ×4 (02:07→21:36)
[2018-10-13] MEDS: ZOSYN 3.375 GM in NS 50 ML IV SCH ×4 (04:48→22:30)
[2018-10-13 06:39] LABS: HEMATOCRIT 35.3 % (42.0-52.0); HEMOGLOBIN 12.1 g/dL (14.0-18.0); MCH 29.4 PG (27-31); MCHC 34.3 g/dL (33-37); MCV 85.9 FL (81-99); MPV 8.9 FL (7.4-10.4); RBC 4.11 XMIL (4.7-6.1); RDW 13.9 % (11.5-14.5); WBC 9.56 X1000 (4.8-10.8)
[2018-10-13 07:00] LABS: ALBUMIN 2.8 g/dL (3.5-5.0); CALCIUM 8.5 mg/dL (8.8-10.2); CREATININE 1.3 mg/dL (0.7-1.2); MAGNESIUM 2.3 mg/dL (1.5-2.7); POTASSIUM 3.4 mmol/L (3.5-5.1); TOTAL BILIRUBIN 0.3 mg/dL (0.20-1.00); TOTAL PROTEIN 7.3 g/dL (6.3-8.3)
[2018-10-13] MEDS: NORVASC PO SCH (08:09)
[2018-10-13] MEDS: NEURONTIN PO SCH ×3 (08:10→21:35)
[2018-10-13] MEDS: XARELTO PO SCH (08:10)
[2018-10-13] MEDS: LACTULOSE PO SCH (08:10)
[2018-10-13] MEDS: SANTYL OINT TOP SCH (08:11)
[2018-10-13] MEDS ORDERED: VANCOMYCIN 1 GM/NS 1 GM/250 ML IVPB IV SCH (09:00)
[2018-10-13] MEDS: MORPHINE IV PRN (10:55)
[2018-10-13] MEDS ORDERED: NS 1,000 ML IV ONE (12:09)
[2018-10-13] MEDS ORDERED: KLOR-CON PO ONE (12:10)
[2018-10-13] MEDS: ZYVOX 600 MG/D5W 600 MG/300 ML IVPB IV SCH (13:34)
[2018-10-13] MEDS: CYMBALTA PO SCH (21:35)
[2018-10-13] MEDS: PRILOSEC PO SCH (21:35)
[2018-10-13] MEDS: LIPITOR PO SCH (21:37)
[2018-10-14] MEDS: LACTULOSE PO SCH ×4 (00:45→22:47)
[2018-10-14] MEDS: ZYVOX 600 MG/D5W 600 MG/300 ML IVPB IV SCH ×2 (00:45→12:06)
[2018-10-14] MEDS: NORCO-10 PO PRN ×4 (00:45→16:06)
[2018-10-14] MEDS: ZOSYN 3.375 GM in NS 50 ML IV SCH ×4 (04:02→22:42)
[2018-10-14 05:24] LABS: BASO# 0.04 X1000 (0.0-0.2); BASO% 0.4 % (0.0-0.8); EOS# 0.47 X1000 (0.0-0.7); EOS% 4.5 % (0.0-10.0); HEMATOCRIT 36.3 % (42.0-52.0); HEMOGLOBIN 12.2 g/dL (14.0-18.0); IMM GRAN# 0.03 X1000 (0.0-0.04); IMM GRAN% 0.3 % (0.0-0.5); LYMPH# 1.62 X1000 (1.2-3.4); LYMPH% 15.4 % (20.5-51.1); MCH 28.9 PG (27-31); MCHC 33.6 g/dL (33-37); MONO# 1.19 X1000 (0.11-0.59); MONO% 11.3 % (1.7-9.3); MPV 9.3 FL (7.4-10.4); NEUT# 7.15 X1000 (1.4-6.5); NEUT% 68.1 % (42.2-75.2); PLT 639 X1000 (130-400); RBC 4.22 XMIL (4.7-6.1); RDW 14.1 % (11.5-14.5)
[2018-10-14 06:02] LABS: AGAP 12; BUN 12 mg/dL (8-22); CALCIUM 8.5 mg/dL (8.8-10.2); CHLORIDE 104 mmol/L (98-107); COSMO 281; CREATININE 1.1 mg/dL (0.7-1.2); ESTIMATED GFR > 60; GLUCOSE 107 mg/dL (70-104); POTASSIUM 4.2 mmol/L (3.5-5.1); SODIUM 141 mmol/L (136-145); TCO2 26 mmol/L (25-35)
[2018-10-14] MEDS: NORVASC PO SCH (08:35)
[2018-10-14] MEDS: XARELTO PO SCH (08:36)
[2018-10-14] MEDS: NEURONTIN PO SCH ×3 (08:36→19:59)
[2018-10-14] MEDS: DUONEB (A & A) INH PRN (11:29)
[2018-10-14] MEDS: SANTYL OINT TOP SCH (12:06)
--- NOTE | 2018-10-14 15:30 | Diag Imaging Result Doc PS360 ---
EXAM: FOOT COMPLETE RIGHT HISTORY: r/o osteo TECHNIQUE: Right foot, three views COMPARISON: 09/19/2018 FINDINGS: No fracture. No dislocation. Arthritis to the first metatarsal phalangeal joint. No bone erosions. No periosteal reaction. Bones are osteopenic. IMPRESSION: No plain film evidence of osteomyelitis. If clinical suspicion persists an MRI is recommended Electronically signed by Coleman Kingsley 10/14/2018 3:27 PM
[2018-10-14] MEDS: CUBICIN 600 MG in NS 100 ML IV SCH (17:39)
[2018-10-14] MEDS: MORPHINE IV PRN ×2 (19:57→23:13)
[2018-10-14] MEDS: CYMBALTA PO SCH ×2 (19:58→22:46)
[2018-10-14] MEDS: PLETAL PO SCH ×2 (19:58→22:47)
[2018-10-14] MEDS: PRILOSEC PO SCH (19:59)
[2018-10-14] MEDS: LIPITOR PO SCH (19:59)
[2018-10-15] MEDS: ZOSYN 3.375 GM in NS 50 ML IV SCH ×4 (05:12→23:11)
[2018-10-15] MEDS: MORPHINE IV PRN ×2 (05:28→21:36)
[2018-10-15 06:03] LABS: AGAP 13; BUN 11 mg/dL (8-22); CHLORIDE 102 mmol/L (98-107); COSMO 281; CREATININE 1.1 mg/dL (0.7-1.2); ESTIMATED GFR > 60; GLUCOSE 99 mg/dL (70-104); POTASSIUM 3.8 mmol/L (3.5-5.1); SODIUM 141 mmol/L (136-145); TCO2 26 mmol/L (25-35)
[2018-10-15 06:05] LABS: BASO# 0.04 X1000 (0.0-0.2); BASO% 0.3 % (0.0-0.8); EOS# 0.37 X1000 (0.0-0.7); EOS% 3.2 % (0.0-10.0); HEMATOCRIT 35.6 % (42.0-52.0); IMM GRAN# 0.03 X1000 (0.0-0.04); IMM GRAN% 0.3 % (0.0-0.5); LYMPH# 1.75 X1000 (1.2-3.4); LYMPH% 15.3 % (20.5-51.1); MCH 29.3 PG (27-31); MCHC 33.7 g/dL (33-37); MONO# 1.05 X1000 (0.11-0.59); MONO% 9.2 % (1.7-9.3); MPV 9.5 FL (7.4-10.4); NEUT# 8.19 X1000 (1.4-6.5); NEUT% 71.7 % (42.2-75.2); PLT 725 X1000 (130-400); RBC 4.09 XMIL (4.7-6.1); RDW 14.2 % (11.5-14.5); WBC 11.43 X1000 (4.8-10.8)
[2018-10-15 06:09] LABS: INR 1.28; PROTIME 16.6 Seconds (11.0-16.0)
[2018-10-15] MEDS: NORVASC PO SCH (08:56)
[2018-10-15] MEDS: PLETAL PO SCH ×2 (08:56→21:37)
[2018-10-15] MEDS: NORCO-10 PO PRN ×3 (08:56→18:59)
[2018-10-15] MEDS: XARELTO PO SCH (08:56)
[2018-10-15] MEDS: NEURONTIN PO SCH ×3 (08:56→21:37)
[2018-10-15] MEDS: LACTULOSE PO SCH ×2 (08:56→21:40)
--- NOTE | 2018-10-15 12:48 | Diag Imaging Result Doc PS360 ---
MRI LOWER EXT W/WO CON-RIGHT - 10/15/2018 INDICATION: wound TECHNIQUE: MRI left foot without and with intravenous contrast COMPARISON: X-rays 10/14/2018 FINDINGS: There is severe patient motion artifact. There is a joint effusion at the first metatarsophalangeal joint. There is no definite abnormal bone marrow signal here. The sesamoids of the first metatarsal head appear normal in signal. There is no abnormal contrast enhancement. No drainable fluid collections. There is hallux valgus within degeneration at the first metatarsophalangeal joint. There is soft tissue hyperintensity here consistent with edema, likely indicating cellulitis. Other bones are normal in signal. IMPRESSION: 1. Degenerative changes at the first metatarsophalangeal joint with hallux valgus. Significant joint effusion that is indeterminate. 2. Overlying soft tissue edema at the first metatarsophalangeal joint which may represent cellulitis. No drainable fluid collections. Electronically signed by Anson Leon 10/15/2018 12:45 PM
--- NOTE | 2018-10-15 14:40 | PROGRESS NOTE ---
DATE: 10/13/2018 SUBJECTIVE: The patient has no major complaints. He is somewhat difficult to understand because of some expressive aphasia. OBJECTIVE: Vital Signs: Blood pressure is 114/59, heart rate 84, respiratory rate 16, temperature 98.2, 97% on 2 L. Cardiovascular: Regular rate and rhythm. Pulmonary: Bilateral breath sounds. Clear to auscultation. GI: Soft, nontender, nondistended. Bowel sounds are positive. Extremities: His foot is under a dressing. Appears to be improving. PROBLEM LIST: 1. Ischemic right foot infected with methicillin-resistant Staphylococcus aureus and Enterobacteria cloacae. We will continue empiric antibiotics. He has been on vancomycin and Zosyn, but I am a little concerned about his rising creatinine with the vancomycin. It has gone from 0.8 on admission to 1.3 today without any other discernible cause. So I will switch him to Zyvox, and we will leave the Zosyn for the time being that will cover Enterobacter. 2. Methicillin-resistant Staphylococcus aureus bacteremia, presumably related to cellulitis. Repeat blood cultures are pending. With a methicillin-resistant Staphylococcus aureus bacteremia, we need to evaluate for endocarditis, so he will need an echo, and he will at least need 2 weeks of antibiotics. May have to discuss the case with Dr. Singh and follow. 3. Severe peripheral vascular disease. Surgery has evaluated him. He has significant disease with 90% common iliac artery stenosis, external iliac 60%, and then disease all the way down on both legs, so there is concern over possible need of amputation. There has not been a surgical note since the aortic runoff was completed, so I am not sure what their plans are. The wound is improving, though, per Wound Care recommendations. We will see what they say. I will ask them to reevaluate and decide what they are going to do. At this point we are committed to 2 weeks of IV antibiotics, but I am not sure what his home situation is, and if that is even going to be an option for him. So, we will continue to follow. cc: Prabhakar Law MD
[2018-10-15] MEDS: CUBICIN 600 MG in NS 100 ML IV SCH (19:00)
[2018-10-15] MEDS: SANTYL OINT TOP SCH (19:42)
--- NOTE | 2018-10-15 20:40 | PROGRESS NOTE ---
DATE: 10/15/2018 SUBJECTIVE: Patient has no major complaints. He has really limited ability to speak. OBJECTIVE: Blood pressure 98/60, heart rate 108, respiratory 18, temperature 98.3 degrees, 95% on room air.Cardiovascular: Regular rate and rhythm. Pulmonary: Bilateral breath sounds clear to auscultation. GI: Soft, nontender, nondistended. Bowel sounds are positive. Extremities: His right foot looks okay. He is complaining of a little bit of pain there. IMAGING: MRI today showed no clear evidence of osteo. He does have some cellulitis. HIS MICRO: Repeat blood cultures from the are negative. He had 1/2 positive blood cultures for MRSA. PROBLEM LIST: 1. Methicillin-resistant Staphylococcus aureus ischemic foot ulcer and bacteremia. He will need IV antibiotics for at least 2 weeks. I feel at this point, I have attempted to call Dr. Singh and I have not been able to reach him today, but we will touch base with him before discharge. I think 2 weeks should be sufficient. We will see what he says of IV antibiotics. We are arranging a PICC which will have to be done after discharge, but we will discharge him to the [facility] for PICC placement and then home IV antibiotics with daptomycin for another 2 weeks. 2. Enterobacter infected ischemic foot ulcer. I will discuss with Dr. Singh as well, but I think it is sensitive to Levaquin. Probably another 7 to 10 days of Levaquin should be sufficient I would think. I do not think we need IV antibiotics for that. He was not bacteremic from Enterobacter. 3. Severe peripheral vascular disease. He will need some sort of vascular treatment. He is on Lipitor. I have added Pletal, which he has not had pain until we started that, but per surgery, he will need a tibial angioplasty and possible stent, but obviously he will have to be not bacteremic. So we are going to work on that as an outpatient. He has good family support and they will help him with his IV antibiotics at home. cc: Prabhakar Law MD
[2018-10-15] MEDS: CYMBALTA PO SCH (21:37)
[2018-10-15] MEDS: PRILOSEC PO SCH (21:37)
[2018-10-15] MEDS: LIPITOR PO SCH (21:37)
[2018-10-16] MEDS: NORCO-10 PO PRN ×3 (02:21→16:11)
[2018-10-16] MEDS: ZOSYN 3.375 GM in NS 50 ML IV SCH ×3 (04:24→16:11)
[2018-10-16] MEDS: MORPHINE IV PRN ×3 (04:30→14:19)
[2018-10-16 07:13] LABS: BASO# 0.06 X1000 (0.0-0.2); BASO% 0.5 % (0.0-0.8); EOS# 1.15 X1000 (0.0-0.7); EOS% 9.9 % (0.0-10.0); HEMATOCRIT 34.3 % (42.0-52.0); HEMOGLOBIN 11.3 g/dL (14.0-18.0); IMM GRAN# 0.06 X1000 (0.0-0.04); IMM GRAN% 0.5 % (0.0-0.5); LYMPH# 1.37 X1000 (1.2-3.4); LYMPH% 11.8 % (20.5-51.1); MCH 29.2 PG (27-31); MCHC 32.9 g/dL (33-37); MCV 88.6 FL (81-99); MONO# 0.84 X1000 (0.11-0.59); MONO% 7.2 % (1.7-9.3); MPV 9.5 FL (7.4-10.4); NEUT# 8.16 X1000 (1.4-6.5); NEUT% 70.1 % (42.2-75.2); PLT 658 X1000 (130-400); RBC 3.87 XMIL (4.7-6.1); RDW 14.2 % (11.5-14.5); WBC 11.64 X1000 (4.8-10.8)
[2018-10-16 08:01] LABS: ANISOCYTOSIS 1+; LYMPHS 15 % (21-51); MONO 3 % (1-9); POIKILOCYTOSIS 1+; SEGS 82 % (42-75)
[2018-10-16] MEDS: XARELTO PO SCH (08:30)
[2018-10-16] MEDS: NORVASC PO SCH (08:30)
[2018-10-16] MEDS: PLETAL PO SCH (08:30)
[2018-10-16] MEDS: NEURONTIN PO SCH ×2 (08:30→14:19)
[2018-10-16] MEDS: SANTYL OINT TOP SCH (08:35)
[2018-10-16] MEDS: LACTULOSE PO SCH (08:35)
[2018-10-16 16:22] VITALS: BP 129/67
[2018-10-16] MEDS: CUBICIN 600 MG in NS 100 ML IV SCH (17:02)
--- NOTE | 2018-10-17 11:56 | ECHO REPORT ---
ORDER DATE: 10/14/2018 INTERPRETING PHYSICIAN: Dr. Aaron Cervantes ECHOCARDIOGRAPHIC MEASUREMENTS: Interventricular septum: 1.4 cm. Left ventricular posterior wall: 1.2 cm. Diastolic diameter: 4.2 cm. Right ventricle: cm. Left atrium: 3.4 cm. Aortic root: 2.6 cm. SUMMARY OF THE 2-DIMENSIONAL IMAGING: Mitral valve was normal. Aortic valve leaflets were trileaflet. Pulmonic valve was normal. There is mild pulmonary regurgitation. Mild tricuspid regurgitation. Peak velocity across the tricuspid valve was 2.7 meters per second. Pulmonary systolic pressure of 40 mmHg. There is mild mitral regurgitation. Peak velocity across the aortic valve less than 2 meters per second. There is no aortic stenosis or regurgitation. Normal left ventricular cavity size. Concentric left ventricular hypertrophy. Estimated ejection fraction of 60% to 65%. Anterior echo-free space suggestive of pericardial fat pad was noted. cc: MD Prabhakar Iniguez MD
--- NOTE | 2018-10-17 15:53 | DISCHARGE SUMMARY ---
ADMISSION DATE: 10/06/2018 DISCHARGE DATE: 10/16/2018 DISCHARGE DIAGNOSIS: Methicillin-resistant Staphylococcus aureus and Enterobacter cellulitis. HOSPITAL COURSE: The day of discharge, he seems to be doing okay. He is complaining of some increased pain, but overall improved. He is felt stable for discharge. He will be discharged on daptomycin for another 2 weeks and I will encourage him to follow up with Surgery for evaluation. He has severe atherosclerotic disease so I am going to keep him on his statin. I know typically that locally that is held because of concern over rhabdomyolysis on daptomycin, but he has such severe PVD, I think that some more of a concern. In any case, the patient is doing okay. We had to switch him to daptomycin because he had some renal insufficiency on the vancomycin. I discussed the case briefly with Dr. Singh who agreed with 2 weeks of IV antibiotics. We will arrange follow-up with Dr. Singh as well and Dr. Chase or Dr. Simeon. This is a [id number] encounter note with Eli Gray. PLAN: To discharge him today. He is going to get his PICC line tomorrow in the morning at 9 o'clock because we could not get that set up as an inpatient. TIME SPENT: A 40 minute discharge. cc: Prabhakar Law MD
--- NOTE | 2018-10-17 17:26 | DISCHARGE SUMMARY ---
ADMISSION DATE: 10/06/2018 DISCHARGE DATE: 10/16/2018 ADMISSION DIAGNOSES: 1. Right foot wound infection secondary to a peripheral vascular disease. 2. Two prior cerebrovascular accidents that affected his speech and the right side of his body. 3. Hypertension. 4. Chronic pain. 5. Alcohol abuse in the past, unknown at the time. DISCHARGE DIAGNOSES: 1. Methicillin-resistant Staphylococcus aureus ischemic foot ulcer and bacteremia. It is going to need IV antibiotics for at least 2 weeks with PICC line arranged to be performed from home. On daptomycin for 2 weeks. 2. Enterobacter infected ischemic foot ulcer. Sensitive to Levaquin. Will be on at least another 8 to 10 days of Levaquin. 3. Severe peripheral vascular disease. He will need some sort of vascular treatment. He is on Lipitor, Pletal was added. He will need a tibial angioplasty and possible stent once he is not bacteremic anymore. CONSULTATIONS: Alvarado Chase and wound care. SURGERIES OR PROCEDURES: None. HOSPITAL COURSE: On 10/06/2018, Mr. Fischer is a 63-year-old male, presented with a history of 2 CVAs that affected right-sided speech; peripheral vascular disease, chronic liver disease secondary to alcoholism, anemia, hypertension, chronic pain. Was admitted through the ER with complaints of a wound on his right foot, was currently being treated at the wound center and found to have elevated white count, was initiated on vancomycin and Zosyn. Wound cultures were obtained. Vascular surgery is consulted. The wound on the foot shows Staphylococcus aureus and Enterobacter which the Enterobacter was resistant to cefazolin and the Staphylococcus was resistant to clindamycin, erythromycin, oxacillin and penicillin. Blood cultures also positive for Staphylococcus aureus, resistant to the same antibiotic. Vascular studies: He had an aorta with runoff CTA which showed severe global vascular disease. It also showed constipation with rectal stool impaction at that time. An arterial study of his extremities which showed likely aortoiliac vascular disease with poor perfusion noted to both legs and there was not enough perfusion to have sufficient wound healing. MRI showed some cellulitis of the first metatarsophalangeal joint. So, he is going to be discharged home. He is going to have IV daptomycin for least 2 weeks and Levaquin for the ischemic foot ulcer for at least another 10 days. He will have his PICC line placed as outpatient and again, for the peripheral vascular disease, he is to continue on Lipitor, but also on Pletal. I believe there was an attempt to get in touch with Dr. Singh that was unsuccessful. DISCHARGE VITAL SIGNS: Temperature 99.0, heart rate 90, respiratory rate 20, blood pressure 127/64, saturation was 93% on room air. DISCHARGE LAB DATA: White blood cells 11,000, hemoglobin 11, hematocrit 34, platelet count 658. Yesterday BMP: Sodium 141, potassium 3.8, BUN 11, creatinine is 1.1 glucose 99, calcium 9.0. PERTINENT IMAGING: On 10/06/2018, extremity arterial ultrasound, likely aortoiliac vascular disease with poor perfusion noted to the legs, not sufficient for wound healing. Chest x-ray on the . No acute findings. On the , had aorta with runoff CTA. It showed severe global vascular disease and constipation with rectal stool impaction. Then on the , had a foot x-ray of the right foot. No plain film evidence of osteomyelitis. On the , had a lower extremity MRI, showed degenerative changes at the first metatarsophalangeal joint with hallux valgus. Significant joint effusion that is indeterminate. No overlying soft tissue edema at the first metatarsophalangeal joint which may represent cellulitis. EKG on the showed normal sinus rhythm, rate 99, QTc was 456. DISCHARGE MEDICATIONS: 1. Atorvastatin 40 mg p.o. nightly. 2. Duloxetine 60 mg p.o. nightly. 3. Omeprazole 40 mg p.o. nightly. 4. Amlodipine besylate 10 mg p.o. daily. 5. Albuterol/Atrovent nebulizers every 4 hours p.r.n. 6. Neurontin 800 mg p.o. t.i.d. 7. Collagenase Clostridium ointment topically. 8. Xarelto 10 mg p.o. daily. 9. Culturelle 1 p.o. twice daily. 10. Daptomycin 400 mg IV daily. 11. Levaquin 500 mg p.o. daily. 12. [place] 10 mg 1 tab p.o. every 4 hours p.r.n. 13. Pletal 50 mg p.o. twice daily. DISCHARGE ACTIVITY: As tolerated. DISCHARGE DIET: Regular diet with Ensure with meal. DISCHARGE PHYSICIAN FOLLOW UP: Inez Andrews MD and Jake Simeon MD. Dr. Jake Simeon is on 10/28/2018 at 9:45 a.m. will have [facility] that was consulted as well. He needs to follow up with either Dr. Simeon or Dr. Chase for tibial angioplasty. To follow up with Wound clinic next week. DISCHARGE INSTRUCTIONS: If the condition changes contact physician and/or return to the emergency department. Changes may include but are not limited to, shortness of breath, increased fatigue, excessive bleeding, unexplained weight loss or gain, unimaginable pain, signs or symptoms of infection. WOUND CARE: Change dressing. I believe last dressing change was on the where the right foot was washed with baby wash and then cleansed and measured. At that time it showed 2.1 x 1 x greater than 0.2 cm with 90% chance left. There is maceration with erythema and edema to the periwound. Complained of burning to the midfoot. Moderate amount of signs or symptoms or drainage present. Santyl was applied, covered with bordered gauze dressing. Santyl is to be done daily. Home with [facility]. Dictated by BALWINDER Epps for Prabhakar Law MD cc: BALWINDER Epps MD
== END 2018-10-16 18:19 | disposition home health service (06) | DRG 603 ==
LOC: P.ED 12:49 → P.EDIPHOLD 20:27 → SUATTDRO 20:27 → P.MEDSURG 10-08 13:47
PROVIDERS: ATTEND Internal Medicine
CPT/HCPCS: 36415; 51701; 71010; 71045; 73630; 73720; 75635; 80048; 80053; 80202; 81001; 82550; 82948; 83605; 83735; 84484; 85025; 85027; 85610; 85730; 87040; 87070; 87077; 87088; 87186; 93005; 93306; 93923; 94640; 94761; 96365; 96366; 97163; 97530; 99285; A9270; A9579; J0878; J2020; J2270; J2543; J3370; J7030; J7050; P9612; Q9967; XXXXX